=== PATIENT | male | born 1970 | race Caucasian/White ===

== ENCOUNTER 2018-11-28 17:29 | Emergency (ER) | payer OTHER ==
--- NOTE | 2018-11-28 17:38 | PDOC ---
Rapid Medical Evaluation Time Seen by Provider: 11/28/18 17:34 Medical Evaluation: 11/28/18 17:34 I have performed a brief in-person evaluation of this patient. The patient presents with a chief complaint of: sent to ED for lower back pain x1 month Pertinent physical exam findings: no sensory deficits noted. Pt had CT scan performed. I have ordered the following: nothing The patient will proceed to the ED for further evaluation. Discharge Disposition - Diagnosis Back pain - Referrals - Patient Instructions - Post Discharge Activity
[2018-11-28 17:39] VITALS: BMI 29.2
[2018-11-28] MEDS ORDERED: KETOROLAC TROMETHAMINE 15 MG/ML VIAL IM ONE (20:38)
[2018-11-28] MEDS ORDERED: KETOROLAC TROMETHAMINE 60 MG/2 ML VIAL ONE (20:41)
--- NOTE | 2018-11-28 20:46 | PDOC ---
History of Present Illness - General Chief Complaint: Back Pain Stated Complaint: BACK PAIN Time Seen by Provider: 11/28/18 17:34 - History of Present Illness Initial Comments: 11/28/18 21:59 The patient is a 48 year old male with a significant PMH of NIDDM, HTN, HLD, and kidney stones who presents to the emergency department with constant atraumatic lower back pain that began approximately 3 weeks ago. He states the lower back pain worsens with changes in position and walking. He denies any recent falls or trauma to the area. Patient is currently working in [employer] , which requires heavy lifting. Patient was seen by Dr. Logan and sent in to the ER for an MRI. He has been taking percocet and robaxin for his back pain with no relief. The patient denies weakness/numbness/or tingling of his extremities, urinary or bowel incontinence, chest pain, shortness of breath, headache and dizziness. Denies fever, chills, nausea, vomit, diarrhea and constipation. Denies dysuria, frequency, urgency and hematuria. Denies CP/SOB Allergies: NKA Past surgical history: None reported. Social history: No reported alcohol, drug or cigarette use. PCP: Dr. Bhatt Past History - Past Medical History Allergies/Adverse Reactions: Allergies Allergy/AdvReac Type Severity Reaction Status Date / Time No Known Allergies Allergy Verified 11/28/18 17:42 Home Medications: Ambulatory Orders Dapagliflozin Propanediol [Farxiga] 5 mg PO DAILY 11/28/18 Enalapril Maleate [Vasotec -] 2.5 mg PO DAILY 11/28/18 Metformin HCl [Metformin HCl ER] 500 mg PO BID 11/28/18 Methocarbamol [Robaxin -] 500 mg PO TID 11/28/18 Oxycodone HCl/Acetaminophen [Percocet 5-325 mg Tablet] 1 tab PO Q4H 11/28/18 Sitagliptin Phosphate [Januvia] 50 mg PO ONCE 11/28/18 COPD: No - Immunization History Immunization Up to Date: Yes - Suicide/Smoking/Psychosocial Hx Smoking History: Never smoked Hx Alcohol Use: No Drug/Substance Use Hx: No Review of Systems - Review of Systems Comments:: 11/28/18 22:05 "GENERAL/CONSTITUTIONAL: No fever or chills. No weakness. HEAD, EYES, EARS, NOSE AND THROAT: No change in vision. No ear pain or discharge. No sore throat. GASTROINTESTINAL: No nausea, vomiting, diarrhea or constipation. GENITOURINARY: No dysuria, frequency, or change in urination. CARDIOVASCULAR: No chest pain or shortness of breath. RESPIRATORY: No cough, wheezing, or hemoptysis. MUSCULOSKELETAL: No joint or muscle swelling or pain. No neck pain. (+) Lower back pain. SKIN: No rash NEUROLOGIC: No headache, vertigo, loss of consciousness, or change in strength/ sensation. ENDOCRINE: No increased thirst. No abnormal weight change. HEMATOLOGIC/LYMPHATIC: No anemia, easy bleeding, or history of blood clots. ALLERGIC/IMMUNOLOGIC: No hives or skin allergy." *Physical Exam - Vital Signs Last Vital Signs Temp Pulse Resp BP Pulse Ox 98.0 F 85 22 H 129/72 97 11/28/18 17:34 11/28/18 17:34 11/28/18 17:34 11/28/18 17:34 11/28/18 17:34 - Physical Exam Comments: 11/28/18 22:06 GENERAL: Awake, alert, and fully oriented, in no acute distress EYES: PERRLA, EOMI, sclera anicteric, conjunctiva clear ENT: Oropharynx clear without exudates. Moist mucosa LUNGS: Breath sounds equal, clear to auscultation bilaterally. No wheezes, and no crackles HEART: Regular rate and rhythm, normal S1 and S2, no murmurs, rubs or gallops ABDOMEN: Soft, nontender, normoactive bowel sounds. No guarding, no rebound. No masses EXTREMITIES: Normal range of motion, no edema. No clubbing or cyanosis. No cords , erythema, or tenderness BACK: No midline spinal tenderness in cervical/thoracic/lumbar region NEUROLOGICAL: Normal speech, cranial nerves intact, negative pronator drift, 5/ 5 strength in all 4 extremities, normal sensation to light touch in all 4 extremities, normal cerebellar exam, normal reflexes and tone. Pt able to ambulated with steady gait. SKIN: Warm, Dry, normal turgor, no rashes or lesions noted. Medical Decision Making - Medical Decision Making 11/28/18 20:43 48yo M hx back pain, HTN, NIDDM, HL, kidney stones presents to the ED at direction of Dr. Logan for MRI of lumbar spine. [facility] ordered from [facility], was unable to evaluate pt until he returned from MRI. Vitals wnl. Exam with ttp to paraspinal lumbar spine b/l, no midline lumbar ttp. 5/5 strength and sensation in LE, normal reflexes, normal tone. No red flags for cauda equina. Case discussed with Dr. Logan who evaluated pt in [facility] [facility], recommended MRI lumbar spine. Dr. Logan has reviewed MRI study, states "some endplate changes L4-5 and L5-S1 small disc protrusions" - states no need for emergent surgery at this time and to control pain. Reassessed pt, was urinating, has no urinary retention. Discussed results and that plan is to control pain and reassess. Toradol 60mg IM ordered, will reassess. Dr. Logan okay with NSAIDs - pt takes percocet and robaxin at home for pain control. 11/28/18 22:07 Pain significantly improved with toradol Ambulating with steady gait Plan to DC with naproxen BID for 1 week Pt to f/u with Dr. Logan I discussed the physical exam findings, ancillary test results and final diagnoses with the patient. I answered all of the patient's questions. The patient was satisfied with the care received and felt comfortable with the discharge plan and treatment plan. The patient will call their primary care physician within 24 hours to arrange follow-up and will return to the Emergency Department with any new, persistent or worsening symptoms. *DC/Admit/Observation/Transfer Diagnosis at time of Disposition: Back pain - Discharge Dispostion Disposition: HOME Condition at time of disposition: Improved Decision to Admit order: No - Referrals Referrals: Mehrdad Bhatt MD [Primary Care Provider] - Isaías Logan MD, FA[facility] [Staff Physician] - - Patient Instructions Printed Discharge Instructions: DI for Low Back Pain Additional Instructions: Follow up with Dr. Logan within 1 week Take naproxen twice a day as needed for pain. Drink a large glass of water with this medication and do not lie down for 30 minutes after taking it. Do not take advil, motrin, aleve, ibuprofen or any other NSAID if you are taking this medication. Return to the emergency department if you have any new, worsening, or concerning symptoms - Post Discharge Activity Forms/Work/School Notes: Back to Work - Attestations Physician Attestion: 11/28/18 22:12 I, Dr. Ramírez Diggs MD, attest that this document has been prepared under my direction and personally reviewed by me in its entirety. I further attest, that it accurately reflects all work, treatment, procedures and medical decision -making performed by me.
[2018-11-28 20:50] VITALS: BP 118/68; PULSE 78; TEMP 97.9
== END 2018-11-28 22:26 | disposition home or self-care (01) ==
LOC: JER 17:29
PROC: 3E0233Z Introduction of Anti-inflammatory into Muscle, Percutaneous Approach (ICD-10-PCS; principal; 2018-11-28)
DX: M54.5 Low back pain (principal); I10 Essential (primary) hypertension; E78.00 Pure hypercholesterolemia, unspecified; E11.9 Type 2 diabetes mellitus without complications; Z87.442 Personal history of urinary calculi
CPT/HCPCS: 72148-TC; 96372; 99282-25